=== PATIENT | male | born 1985 | race Caucasian/White ===

== ENCOUNTER 2018-10-22 07:59 | Emergency (ER) | payer BC, OTHER ==
--- NOTE | 2018-10-22 08:40 | UC ---
UC General HPI - HPI Summary HPI Summary: Two days of cough, congestion and body aches. Feels like he was hit by a bus. Vomited twice yesterday. No diarrhea or abdominal pain. Adequate PO. Unknown if he has had fevers. 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 Meds: Reviewed - History of Current Complaint Stated Complaint: FLU LIKE SYMPTOMS Time Seen by Provider: 10/22/18 08:02 - Allergy/Home Medications Allergies/Adverse Reactions: Allergies Allergy/AdvReac Type Severity Reaction Status Date / Time No Known Allergies Allergy Verified 10/22/18 08:48 Home Medications: Home Medications NK [No Home Medications Reported] 10/22/18 [History Confirmed 10/22/18] PMH/Surg Hx/FS Hx/Imm Hx Previously Healthy: Yes - Social History Alcohol Use: Rare Substance Use Type: None Smoking Status (MU): Current Every Day Smoker Review of Systems All Other Systems Reviewed And Are Negative: Yes ENT: Positive: Sore Throat, Nasal Discharge Respiratory: Positive: Cough Gastrointestinal: Positive: Vomiting Physical Exam Triage Information Reviewed: Yes Appearance: Well-Appearing Vital Signs Reviewed: Yes ENT: Positive: Pharyngeal erythema, Nasal congestion, TMs normal Neck: Positive: Supple, Enlarged Nodes @ - anterior cervical chain Respiratory: Positive: Lungs clear, Normal breath sounds, Other: - diminished breath sounds Cardiovascular: Positive: RRR, No Murmur Course/Dx - Course Course Of Treatment: This is a 33 yr old smoker who presents with cough and congestion. Assessment. Nontoxic appearing. Flu: Negative. Plan. Continue supportive care. Continue to drink plenty of fluids. Tylenol and/or ibuprofen as needed for pain/fever. Tessalon pearles as directed as needed for cough. Quit smoking - Diagnoses Provider Diagnosis: Viral syndrome Discharge - Sign-Out/Discharge Documenting (check all that apply): Patient Departure All imaging exams completed and their final reports reviewed: No Studies - Discharge Plan Condition: Good Disposition: HOME Forms: *Work Release Referrals: No Primary Care Phys,NOPCP [Primary Care Provider] - Additional Instructions: Influenza: Negative Continue supportive care Continue to drink plenty of fluids Tylenol and/or ibuprofen as needed for pain/fever Tessalon pearles as directed as needed for cough Quit smoking - Billing Disposition and Condition Condition: GOOD Disposition: Home
[2018-10-22 08:55] VITALS: BP 121/84
[2018-10-22 08:59] LABS: Influenza A Molecular NEGATIVE (Negative); Influenza B Molecular NEGATIVE (Negative)
== END 2018-10-22 09:30 | disposition home or self-care (01) ==
LOC: UCEAST 07:59
DX: B34.9 Viral infection, unspecified (principal); R05 Cough; R52 Pain, unspecified; R09.81 Nasal congestion; F17.200 Nicotine dependence, unspecified, uncomplicated
CPT/HCPCS: 36415; 86703; 99202; G0463

== ENCOUNTER 2018-11-25 13:02 | Emergency (ER) | payer OTHER ==
[2018-11-25 13:10] VITALS: BP 118/83
--- NOTE | 2018-11-25 13:26 | ED ---
Neck Pain - HPI Summary HPI Summary: A 33 y/o M presents to ED with c/o neck pain onset one week ago. 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 The pain has not decreased since the onset of sx. The pain is not radiating down his shoulder blades. He's been taking Flexeril and Ibuprofen to no relief. He can turn his head to the L without issue. He denies bilateral UE pain nor limited ROM. He states lifting his RUE is aggravating to his neck. He denies PMHx of back problems. He was seen at for same sx on 11/19/18. - History of Current Complaint Chief Complaint: EDNeckComplaint Stated Complaint: NECK INJ/STIFF NECK PER PT Time Seen by Provider: 11/25/18 13:18 Hx Obtained From: Patient Onset/Duration Of Injury/Symptoms: Weeks - 1 week ago Mechanism Of Injury: No Known Trauma Timing: Constant, Lasting Weeks - 1 week Onset/Duration: Sudden Onset, Started weeks ago, Still Present Severity Initially: Severe Severity Currently: Severe Pain Intensity: 7 Pain Scale Used: 0-10 Numeric Location: Discrete At: - neck, Radiates To: - between shoulder blade Character: Sharp Aggravating Factors: Other: - pos: lifting RUE Associated Signs & Symptoms: Positive: Nuchal Rigity Related History: Occupational Injury - Allergies/Home Medications Allergies/Adverse Reactions: Allergies Allergy/AdvReac Type Severity Reaction Status Date / Time No Known Allergies Allergy Verified 11/25/18 13:10 PMH/Surg Hx/FS Hx/Imm Hx Previously Healthy: Yes Endocrine/Hematology History: Denies: Hx Diabetes, Hx Thyroid Disease Cardiovascular History: Denies: Hx Hypertension Respiratory History: Denies: Hx Asthma, Hx Chronic Obstructive Pulmonary Disease (COPD) GI History: Denies: Hx Ulcer Musculoskeletal History: Denies: Hx Back Problems - Surgical History Surgery Procedure, Year, and Place: wisdom tooth Infectious Disease History: No Infectious Disease History: Denies: Hx Hepatitis, Hx Human Immunodeficiency Virus (HIV), Traveled Outside the [place] in Last 30 Days - Family History Known Family History: Positive: Non-Contributory - Social History Occupation: Employed Full-time Lives: Alone Alcohol Use: None Substance Use Type: Reports: None Smoking Status (MU): Current Every Day Smoker Amount Used/How Often: 1 -1.5PPD Review of Systems Negative: Fever Musculoskeletal: Other - pos: neck pain Positive: Decreased ROM - neck All Other Systems Reviewed And Are Negative: Yes Physical Exam - Summary Physical Exam Summary: Appearance: Well-appearing, Well-nourished, lying in bed comfortably Skin: Warm, dry, no obvious rash Eyes: sclera anicteric, no conjunctival pallor ENT: mucous membranes moist, pharynx appears normal Neck: Supple, ROM to R is restricted, better to the L. There is focal tenderness of superior sternocleidomastoid muscle. Respiratory: Clear to auscultation, no signs of respiratory distress Cardiovascular: Normal S1, S2. No murmurs. Normal distal pulses in tibial and radial bilaterally. Abdomen: Soft, nontender, normal active bowel sounds present Musculoskeletal: Normal, Strength/ROM Intact of UE Neurological: A&Ox3, awake and alert, mentation is normal, speech is fluent and appropriate. No sensory abnormalities, no hyperactive reflexes. Psychiatric: affect is normal, does not appear anxious or depressed Triage Information Reviewed: Yes Vital Signs On Initial Exam: Initial Vitals Temp Pulse Resp BP Pulse Ox 98.3 F 74 16 118/83 98 11/25/18 13:06 11/25/18 13:06 11/25/18 13:06 11/25/18 13:06 11/25/18 13:06 Vital Signs Reviewed: Yes Diagnostics - Vital Signs Vital Signs Temp Pulse Resp BP Pulse Ox 11/25/18 13:06 98.3 F 74 16 118/83 98 - Laboratory Lab Statement: Any lab studies that have been ordered have been reviewed, and results considered in the medical decision making process. Neck Course/Dx - Course Course Of Treatment: Pt is a 33 y/o M presenting with neck pain onset one week ago while at work. Pt has limited ROM of neck turning to R. The pain is radiating down his shoulder blades. Flexeril and Ibuprofen provide no relief. He denies PMHx: back problems. Will d/c patient home with Ativan. - Diagnoses Provider Diagnoses: Cervical myofascial strain Discharge - Sign-Out/Discharge Documenting (check all that apply): Patient Departure - DC Patient Received Moderate/Deep Sedation with Procedure: No - Discharge Plan Condition: Good Disposition: HOME Prescriptions: LORazepam TAB(*) [Ativan 0.5 MG TAB (*)] 0.5 mg PO Q8H #12 tab MDD 3 tabs Patient Education Materials: Cervical Strain (ED) Forms: *Work Release Referrals: Luciano Welsh MD [Medical Doctor] - Additional Instructions: Dr. Welsh is an occupational health specialist here at [facility]. Check with [employer], but he has affiliations with many of the larger employers in the area and would be best equipped to help you in your recovery. - Billing Disposition and Condition Condition: GOOD Disposition: Home - Attestation Statements Document Initiated by Zac: Yes Documenting Scribe: Houston Contreras Provider For Whom Zac is Documenting (Include Credential): Dr. Lopez Yo MD Scribe Attestation: Jhony, Houston Contreras, scribed for Dr. Lopez Yo MD on 11/25/18 at 1431. Scribe Documentation Reviewed: Yes Provider Attestation: The documentation as recorded by the Houston nagy accurately reflects the service I personally performed and the decisions made by me, Dr. Lopez Yo MD Status of Scribe Document: Viewed
== END 2018-11-25 13:44 | disposition home or self-care (01) ==
LOC: ED 13:02
DX: S16.1XXA Strain of muscle, fascia and tendon at neck level, initial encounter (principal); X58.XXXA Exposure to other specified factors, initial encounter; Y92.9 Unspecified place or not applicable
CPT/HCPCS: 99282

== ENCOUNTER 2019-03-16 12:22 | Emergency (ER) | payer OTHER ==
[2019-03-16] MEDS ORDERED: traMADol TAB* 50 MG PO ONE (13:38)
[2019-03-16] MEDS ORDERED: Ketorolac *IM* INJ* 60 MG/2 ML VIAL IM ONE (13:39)
[2019-03-16 14:30] VITALS: BP 121/77
--- NOTE | 2019-03-16 16:02 | ED ---
Neck Pain - HPI Summary HPI Summary: this patient is a 33-year-old male who presents to the ED This patient is a 33-year-old male presenting to the ED with severe neck pain. He states he injured the neck while working several months ago and is currently on disability. He states after an MRI was completed he was told he needed to have surgery. He currently has follow-ups with Dr. Chaparro but cannot wait for another 1.5 weeks for the surgery and he is in pain. He states the pain is radiating into his bilateral shoulders and scapula. He denies any chest pain or shortness of breath. Denies any numbness or tingling in the bilateral upper extremities. Denies any abdominal pain. He is unable to flex and extend and unable to rotate about the neck due to pain. He denies any tick bites, rashes or other concerns. Denies any neurologic deficits. He states this has been worsening over the past several months since the accident. - History of Current Complaint Chief Complaint: EDNeckComplaint Stated Complaint: NECK PAIN PER PT Time Seen by Provider: 03/16/19 12:51 Hx Obtained From: Patient Mechanism Of Injury: Blunt Trauma Timing: Constant Onset/Duration: Sudden Onset Severity Initially: Moderate Severity Currently: Moderate Pain Intensity: 6 Pain Scale Used: 0-10 Numeric Character: Aching Aggravating Factors: Nothing Alleviating Factors: Nothing Associated Signs & Symptoms: Positive: Negative - Risk Factors Meningitis Risk Factors: Negative - Allergies/Home Medications Allergies/Adverse Reactions: Allergies Allergy/AdvReac Type Severity Reaction Status Date / Time No Known Allergies Allergy Verified 03/16/19 12:27 PMH/Surg Hx/FS Hx/Imm Hx Previously Healthy: Yes Endocrine/Hematology History: Denies: Hx Diabetes, Hx Thyroid Disease Cardiovascular History: Denies: Hx Hypertension Respiratory History: Denies: Hx Asthma, Hx Chronic Obstructive Pulmonary Disease (COPD) GI History: Denies: Hx Ulcer Musculoskeletal History: Denies: Hx Back Problems - Surgical History Surgery Procedure, Year, and Place: wisdom tooth - Immunization History Hx Pertussis Vaccination: No Immunizations Up to Date: Yes Infectious Disease History: No Infectious Disease History: Denies: Hx Hepatitis, Hx Human Immunodeficiency Virus (HIV), Traveled Outside the US in Last 30 Days - Family History Known Family History: Positive: Non-Contributory - Social History Occupation: Disabled Lives: With Family Alcohol Use: None Hx Substance Use: No Substance Use Type: Reports: None Hx Tobacco Use: Yes Smoking Status (MU): Current Every Day Smoker Amount Used/How Often: 1 -1.5PPD Review of Systems Negative: Fever, Chills, Fatigue, Skin Diaphoresis Negative: Chest Pain Negative: Shortness Of Breath, Cough Genitourinary: Negative Positive: no symptoms reported, see HPI Negative: Arthralgia, Myalgia Skin: Negative Neurological: Negative All Other Systems Reviewed And Are Negative: Yes Physical Exam Triage Information Reviewed: Yes Vital Signs On Initial Exam: Initial Vitals Temp Pulse Resp BP Pulse Ox 98.6 F 98 14 123/82 98 03/16/19 12:24 03/16/19 12:24 03/16/19 12:24 03/16/19 12:24 03/16/19 12:24 Vital Signs Reviewed: Yes Appearance: Positive: Well-Appearing, Well-Nourished Skin: Positive: Warm, Skin Color Reflects Adequate Perfusion Head/Face: Positive: Normal Head/Face Inspection Eyes: Positive: EOMI, MARLON, Conjunctiva Clear Neck: Positive: Supple Respiratory/Lung Sounds: Positive: Clear to Auscultation, Breath Sounds Present Cardiovascular: Positive: RRR, Pulses are Symmetrical in both Upper and Lower Extremities Musculoskeletal: Positive: Normal, Strength/ROM Intact Neurological: Positive: Sensory/Motor Intact, Alert, Oriented to Person Place, Time, Speech Normal Psychiatric: Positive: Affect/Mood Appropriate AVPU Assessment: Alert Diagnostics - Vital Signs Vital Signs Temp Pulse Resp BP Pulse Ox 03/16/19 14:28 97.7 F 65 18 121/77 99 03/16/19 12:24 98.6 F 98 14 123/82 98 - Laboratory Lab Statement: Any lab studies that have been ordered have been reviewed, and results considered in the medical decision making process. Neck Course/Dx - Course Course Of Treatment: Patient is evaluated for stiff neck and neck pain following an accident several months ago. Patient has an appointment for follow -up with Dr. George and has had a recent MRI which he states now his neck requires fusion and surgery. He states he is here for pain control as he does take ibuprofen at home without relief. I discussed treatment options with the patient. I have agreed to give him Toradol here in the ED as well as tramadol. He will be given tramadol, Toradol and prednisone. He is OK with pain control plan and discharge. - Diagnoses Provider Diagnoses: Neck pain Discharge - Sign-Out/Discharge Documenting (check all that apply): Patient Departure Patient Received Moderate/Deep Sedation with Procedure: No - Discharge Plan Condition: Stable Disposition: HOME Prescriptions: Ketorolac TAB * [Toradol TAB *] 10 mg PO Q6H #16 tab predniSONE TAB* [Deltasone TAB*] 50 mg PO DAILY #5 tab MDD 1 traMADol TAB* [Ultram*] 50 mg PO Q8H PRN #15 tab MDD 3 PRN Reason: Pain Patient Education Materials: Neck Pain (ED) Referrals: No Primary Care Phys,NOPCP [Primary Care Provider] - Additional Instructions: Toradol 4 times daily 4 days for inflammation and pain Prednisone once daily, in the morning 5 days DO NOT TAKE IBUPROFEN OR OTHER NSAIDS WHILE TAKING THIS MEDICATION After the Toradol has been completed, you may resume ibuprofen Tramadol 3 times daily 5 days or only as needed for worsening pain Moist heat to the area as much as possible Rest, however continued to try to rotate about the neck to prevent stiffness Turmeric with bioperine (over the counter) take as directed - this is over the counter Please follow up as needed - Billing Disposition and Condition Condition: STABLE Disposition: Home
--- OUTSIDE RECORDS SUMMARY | 2019-03-16 18:08 | XMS REPORT | Continuity of Care Document ---
:1985 External Reference #:[id number] Author Name Zhane Enamorado Care Team Providers Name Role Phone Patient's Choice Primary Care Physician Unavailable Payers Date Identification Numbers Payment Provider Subscriber Effective: Policy Number: [id number] [facility] Amor Ramirez 2011 Expires: 2014 Group Name: [facility]# [id number] [address] [address] PayID: [id number] [place] [id number] Effective: 2018 Policy Number: [id number] [facility] Amor Ramirez Onset: 2018 Group Number: fax- [phone] [address] PayID: [id number] [place] [address] Problems Active Problems Provider Date Depressive disorder Ren Louis M.D. Onset: 10/31/2012 Left lower quadrant pain Ren Louis M.D. Onset: 10/31/2012 Neck pain Ren Louis M.D. 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 History Medications No Active Medications Ren Louis, 10/31/2012 - Toni 10/31/2012 Fluoxetine HCL 1 po qd 30caps 311 Ren Louis, 10/31/2012 - 20mg M.DCharlie 02/18/2019 Capsules Omeprazole 1 po qd 30caps 789.04 Ren Louis, 10/31/2012 - 20mg Capsules DR Muñoz 02/18/2019 Immunizations CPT Code Status Date Vaccine Lot # [id number] Given 08/12/2011 Tetanus And Diptheria (Td) For Adult Use Preservative Free Vital Signs Date Vital Result Comment 02/18/2019 11:59am Height 68 inches 5'8" Weight 140.00 lb BP Systolic Sitting 110 mmHg BP Diastolic Sitting 70 mmHg Pain Level 10 BMI (Body Mass Index) 21.3 kg/m2 10/31/2012 9:37am Height 68.5 inches 5'8.50" Weight 139.00 lb Heart Rate 95 /min BP Systolic Sitting 96 mmHg BP Diastolic Sitting 80 mmHg Body Temperature 98.0 F BMI (Body Mass Index) 20.8 kg/m2 Results Test Date Facility Test Result H/L Range Note Urinalysis Profile 04/13/2015 [facility] Urine Color Yellow N [address] [place] [address] [phone] Urine Appearance Clear N Urine Specific [place] 1.006 Low 1.010-1.030 Urine pH 7.0 N 5-9 Urine Urobilinogen Negative N Negative Urine Ketones Negative N Negative Urine Protein Negative N Negative Urine Leukocytes Negative N Negative Urine Blood Negative N Negative Urine Nitrite Negative N Negative Urine Bilirubin Negative N Negative Urine Glucose Negative N Negative CBC Auto Diff 04/13/2015 [facility] White Blood 7.4 10^3/uL N 4.8-10.[address] [place] [address] [phone] Red Blood Count 5.02 10^6/uL N 4.0-5.4 Hemoglobin 16.3 g/dL N 14.0-18.0 Hematocrit 48 % N 42-52 Mean Corpuscular Volume 96 fL High 80-94 Mean Corpuscular Hemoglobin 33 pg High 27-31 Mean Corpuscular HGB Conc 34 g/dL N 31-36 Red Cell Distribution Width 13 % N 10.5-15 Platelet Count 164 10^3/uL N 150-450 Mean Platelet Volume 10 um3 N 7.4-10.4 Abs Neutrophils 4.7 10^3/uL N 1.5-7.7 Abs Lymphocytes 2.0 10^3/uL N 1.0-4.8 Abs Monocytes 0.5 10^3/uL N 0-0.8 Abs Eosinophils 0.2 10^3/uL N 0-0.6 Abs Basophils 0 10^3/uL N 0-0.2 Abs Nucleated RBC 0 10^3/uL N Granulocyte % 63.6 % N 38-83 Lymphocyte % 26.6 % N 25-47 Monocyte % 6.7 % N 1-9 Eosinophil % 2.5 % N 0-6 Basophil % 0.6 % N 0-2 Nucleated Red Blood Cells % 0 N Inr/Protime 04/13/2015 [facility] Inr 1.01 N 0.78-1.07 [address] [place] [address] [phone] Laboratory test 04/13/2015 [facility] Partial 31.7 seconds N 26.0-36.[address] [facility] [place] [address] PTT [phone] Lactic Acid 0.8 mmol/L N 0.5-2.2 Comp Metabolic Panel 04/13/2015 [facility] Sodium 138 mmol/L N 133-145 [address] [place] [address] [phone] Potassium 4.0 mmol/L N 3.5-5.0 Chloride 103 mmol/L N 101-111 Co2 Carbon Dioxide 31 mmol/L N 22-32 Anion Gap 4 mmol/L N 2-11 Glucose 97 mg/dL N 70-100 Blood Urea Nitrogen 9 mg/dL N 6-24 Creatinine 0.96 mg/dL N 0.67-1.17 BUN/Creatinine Ratio 9.4 N 8-20 Calcium 9.6 mg/dL N 8.6-10.3 Total Protein 7.1 g/dL N 6.4-8.9 Albumin 4.6 g/dL N 3.2-5.2 Globulin 2.5 g/dL N 2-4 Albumin/Globulin Ratio 1.8 N 1-3 Total Bilirubin 0.50 mg/dL N 0.2-1.0 Alkaline Phosphatase 75 U/L N 34-104 Alt 9 U/L N 7-52 Ast 15 U/L N 13-39 Egfr Non- 91.4 N >60 Egfr 117.5 N >60 1 Laboratory test finding 04/13/2015 [facility] Lipase 20 U/L N 11.0-82.[address] [place] [address] [phone] C Reactive Protein 1.27 mg/L N < 5.00 2 CBC Auto Diff 10/31/2012 [facility] White Blood 6.9 10^3/uL 4.8-10.[address] [place] [address] [phone] Red Blood Count 5.29 10^6/uL 4.0-5.4 Hemoglobin 17.5 g/dL 14.0-18.0 Hematocrit 51 % 42-52 Mean Corpuscular Volume 96 fL High 80-94 Mean Corpuscular Hemoglobin 33 pg High 27-31 Mean Corpuscular HGB Conc 35 g/dL 31-36 Red Cell Distribution Width 13 % 10.5-15 Platelet Count 173 10^3/uL 150-450 Mean Platelet Volume 11 um3 High 7.4-10.4 Abs Neutrophils 4.6 10^3/uL 1.5-7.7 Abs Lymphocytes 1.3 10^3/uL 1.0-4.8 Abs Monocytes 0.8 10^3/uL 0-0.8 Abs Eosinophils 0.1 10^3/uL 0-0.6 Abs Basophils 0 10^3/uL 0-0.2 Abs Nucleated RBC 0.01 10^3/uL Granulocyte % 66.3 % 38-83 Lymphocyte % 18.9 % Low 25-47 Monocyte % 12.0 % High 1-9 Eosinophil % 2.1 % 0-6 Basophil % 0.7 % 0-2 Nucleated Red Blood Cells % 0.1 Comp Metabolic Panel 10/31/2012 [facility] Sodium 141 mmol/L 133-[address] [place] [address] [phone] Potassium 4.6 mmol/L 3.5-5.0 Chloride 103 mmol/L 101-111 Co2 Carbon Dioxide 31.0 mmol/L 22-32 Anion Gap 7.0 mmol/L 2-11 Glucose 89 mg/dL 70-100 Blood Urea Nitrogen 9 mg/dL 6-24 Creatinine 0.90 mg/dL 0.50-1.40 BUN/Creatinine Ratio 10.0 8-20 Calcium 10.2 mg/dL High 8.1-9.9 Total Protein 6.4 g/dL 6.2-8.1 Albumin 4.4 g/dL 3.6-5.4 Globulin 2.0 g/dL 2-4 Albumin/Globulin Ratio 2.2 1-3 Total Bilirubin 0.8 mg/dL 0.4-1.5 Alkaline Phosphatase 93 U/L 30-110 Alt 14 U/L 14-54 Ast 15 U/L 12-42 Egfr Non- 100.5 >60 Egfr 129.2 >60 3 Laboratory test 10/31/2012 [facility] Erythrocyte Sed 13 mm/Hr 0-[address] Rate [place], [place] [id number] [phone] Lipid Profile 10/31/2012 [facility] Triglycerides 89 mg/dL 40 -200 (Trig/Chol/HDL) [address] [place], [place] [id number] [phone] Cholesterol 181 mg/dL Less than 200 HDL Cholesterol 50 mg/dL 40-60 4 Cholesterol/HDL Ratio 3.6 Average 1-4.44 LDL Cholesterol 113.2 mg/dL High Less Than 100 5 Laboratory test 10/31/2012 [facility] TSH (Thyroid 1.11 0.34- 5.[address] Stimulating miu/[place] [address] Horm) [phone] 1 Because ethnic data is not always readily available, this report includes an eGFR for both -Americans and non- Americans. The National Kidney Disease Education Program (NKDEP) does not endorse the use of the MDRD equation for patients that are not between the ages of 18 and 70, are , have extremes of body size, muscle mass, or nutritional status, or are non- or non-. According to the National Kidney Foundation, irrespective of diagnosis, the stage of the disease is based on the level of kidney function: Stage Description GFR(mL/min/1.73 m(2)) 1 Kidney damage with normal or decreased GFR 90 2 Kidney damage with mild decrease in GFR 60-89 3 Moderate decrease in GFR 30-59 4 Severe decrease in GFR 15-29 5 Kidney failure <15 (or dialysis) 2 Acute inflammation: >10.00 3 Because ethnic data is not always readily available, this report includes an eGFR for both -Americans and non- Americans. The National Kidney Disease Education Program (NKDEP) does not endorse the use of the MDRD equation for patients that are not between the ages of 18 and 70, are , have extremes of body size, muscle mass, or nutritional status, or are non- or non-. According to the National Kidney Foundation, irrespective of diagnosis, the stage of the disease is based on the level of kidney function: Stage Description GFR(mL/min/1.73 m(2)) 1 Kidney damage with normal or decreased GFR 90 2 Kidney damage with mild decrease in GFR 60-89 3 Moderate decrease in GFR 30-59 4 Severe decrease in GFR 15-29 5 Kidney failure <15 (or dialysis) 4 HDL Interpretation: Undesirable: High Risk: Less than 40 MG/DL Desirable: Low Risk: Greater than 60 MG/DL 5 LDL Interpretation: Low Risk Optimal Level: LDL Less than 100 MG/DL Near or Above Optimal: LDL 100-129 MG/DL Borderline High Risk: LDL 130-159 MG/DL High Risk: LDL 160-189 MG/DL Very High Risk: LDL Greater than 189 MG/DL Encounters Type Date Location Provider Dx Diagnosis Office Visit 02/18/2019 [facility] 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 General Medical Routine AT [facility] 311 Depressive Disorder Not Elsewhere Spec 789.04 Pain Abdominal Left Lower Quadrant 723.1 Cervicalgia 724.2 Lumbago 786.2 Cough Plan of Treatment 02/18/2019 - Nam Burleson, MDM50.20 Other cervical disc displacement, unsp cervical regionReferral:Gerardo Lamb MD, Interventional Pain MedicFollow up:Rv prn. Patient will call if he would like to proceed with surgical intervention. Please notify me to order F/E XR prior to the next visit.M54.12 Radiculopathy, cervical region
== END 2019-03-16 14:28 | disposition home or self-care (01) ==
LOC: ED 12:22
DX: M54.2 Cervicalgia (principal); F17.210 Nicotine dependence, cigarettes, uncomplicated; Z87.828 Personal history of other (healed) physical injury and trauma
CPT/HCPCS: 96372; 99282; A9270-GY; J1885

== ENCOUNTER 2020-04-28 11:05 | Inpatient (IN) ==
[~2020-04-28 11:05] MED LIST: Buffered Lidocaine 1% SYRIN 1 ml INTRADERM ONE; Dexamethasone IV 4 MG/ML VIAL 1 ml VIAL IV SLOW PU ONE; Famotidine IV 10 MG/ML 2 ml VIAL (20 mg) IV ONE; Lactated Ringers 1000 ml BAG 1,000 ML IV SCH; Lidocaine 2% PF 5 ML VIAL ONE; Metoclopramide 5 MG/ML VIAL (10 mg) ONE; Midazolam 5 mg/5 ml VIAL 1 mg/ml 5 ml VIAL (5 mg) ONE; Ondansetron 4 mg VIAL 2 MG/ML 2 ml VIAL ONE; Propofol 10 MG/ML 20 ML BTL ONE; Rocuronium 50 mg VIAL 10 mg/ml 5 ml VIAL (50 mg) ONE; Succinylcholine 200 mg VIAL 20 mg/ml 10 ml VIAL (200 mg) ONE; fentaNYL 250 mcg/5 ml 50 MCG/ML 5 ml VIAL (250 MCG) ONE
[2020-04-28] MEDS ORDERED: ceFAZolin 2 GM PREMIX 2 GM/50 ML BAG ONE (11:38)
[2020-04-28] MEDS ORDERED: Dexamethasone IV 4 MG/ML VIAL 1 ml VIAL ONE (11:38)
[2020-04-28] MEDS ORDERED: Famotidine IV 10 MG/ML 2 ml VIAL (20 mg) ONE (11:38)
[2020-04-28] MEDS ORDERED: Lidocaine 1% w EPI 1:200,000 SDV 30 ML VIAL ONE (12:53)
[2020-04-28] MEDS ORDERED: Bacitracin INJECTION 50,000 UNITS ONE (12:53)
[2020-04-28] MEDS ORDERED: Remifentanil 2 MG VIAL ONE ×2 (13:10→16:11)
[2020-04-28] MEDS ORDERED: oxyCODONE/Acetamin 5/325 mg TAB PO PRN (13:30)
[2020-04-28] MEDS ORDERED: DiMENhydriNATE IV 50 mg/ml 1 ml VIAL IV PUSH PRN ×2 (13:30→14:29)
[2020-04-28] MEDS ORDERED: HYDROmorphone 1 MG/1 ML SYRINGE IV PRN ×2 (13:30→14:29)
[2020-04-28] MEDS ORDERED: Naloxone 0.4 mg VIAL 0.4 mg/ml 1 ml VIAL IV PRN ×2 (13:30→14:29)
[2020-04-28] MEDS ORDERED: fentaNYL 100 mcg/2 ml 50 MCG/ML VIAL IV PRN (14:29)
[2020-04-28] MEDS ORDERED: Ondansetron 4 mg VIAL 2 MG/ML 2 ml VIAL IV PRN ×2 (14:29→18:14)
[2020-04-28] MEDS ORDERED: Acetaminophen IV 1 GM/100ML 1,000 MG/100 ML VIAL IVPB ONE (14:29)
[2020-04-28] MEDS ORDERED: Rocuronium 50 mg VIAL 10 mg/ml 5 ml VIAL (50 mg) ONE (15:22)
[2020-04-28 17:14] LABS: Hepatitis B Surface Antigen Nonreactive (Nonreactive)
[2020-04-28] MEDS ORDERED: HYDROmorphone 1 MG/1 ML SYRINGE ONE (17:24)
[2020-04-28 17:32] LABS: Hepatitis C Antibody Negative (Negative)
[2020-04-28] MEDS ORDERED: HYDROcodone/ACETAMIN 5/325 mg TAB PO PRN (18:14)
[2020-04-28 18:29] LABS: HIV 4th Generation Nonreactive (Nonreactive)
[2020-04-28] MEDS ORDERED: Acetaminophen IV 1 GM/100ML 0 ML ONE (18:33)
[2020-04-28] MEDS ORDERED: fentaNYL 100 mcg/2 ml 50 MCG/ML VIAL ONE (18:41)
[2020-04-28] MEDS: HYDROcodone/ACETAMIN 5/325 mg TAB PO PRN (21:57)
[2020-04-29] MEDS ORDERED: Morphine 2 MG/ML SYRINGE IV PRN (00:23)
[2020-04-29] MEDS: HYDROcodone/ACETAMIN 5/325 mg TAB PO PRN ×3 (02:21→12:28)
[2020-04-29] MEDS ORDERED: Phenol 1.4% Throat Spray 177 ml BTL MT PRN (08:27)
[2020-04-29 11:10] VITALS: BP 117/58
[2020-04-30 13:58] LABS: Hepatitis B Surface Ab Indeterminate (Immune)
== END 2020-04-29 13:00 | disposition home or self-care (01) | DRG 321 ==
LOC: AA 11:05 → SSU 18:14
PROVIDERS: ADMIT Neurological Surgery; ATTEND Hospitalist